=== PATIENT | female | born 1960 | race Caucasian/White ===

== ENCOUNTER 2017-09-10 17:41 | Emergency (ER) | payer BC ==
--- NOTE | 2017-09-10 17:53 | PDOC ---
Rapid Medical Evaluation Chief Complaint: Cold Symptoms Time Seen by Provider: 09/10/17 17:51 Medical Evaluation: Allergies Allergy/AdvReac Type Severity Reaction Status Date / Time No Known Drug Allergies Allergy Verified 09/10/17 17:51 shrimp Allergy Mild Hives Uncoded 09/10/17 17:51 09/10/17 17:51 The patient presents with a chief complaint of: [Chills, bodyaches, headache, since Sunday.] I have performed a brief in-person evaluation of this patient. Pertinent physical exam findings: [Lungs clear, nasal congestion, HR 113, Temp 99.9] I have ordered the following: [Rapid influenza.] The patient will proceed to the ED for further evaluation. 09/10/17 17:53 Discharge Disposition - Diagnosis Fever - Referrals - Patient Instructions - Post Discharge Activity
[2017-09-10 17:54] VITALS: BP 165/94; PULSE 115; TEMP 99.9; BMI 32.0
--- NOTE | 2017-09-10 18:28 | PDOC ---
History of Present Illness - General Chief Complaint: Cold Symptoms Stated Complaint: COLD SYMPTOMS Time Seen by Provider: 09/10/17 17:51 History Source: Patient Exam Limitations: No Limitations - History of Present Illness Initial Comments: 09/10/17 18:24 56 yr female no pmhx c/o chills body aches fever nasal congestion for 48hrs. no abd pain or vomiting. pt asking to be tested for flu. Severity: reports: mild Past History - Past Medical History Allergies/Adverse Reactions: Allergies Allergy/AdvReac Type Severity Reaction Status Date / Time No Known Drug Allergies Allergy Verified 09/10/17 17:51 shrimp Allergy Mild Hives Uncoded 09/10/17 17:51 Home Medications: Ambulatory Orders NK [No Known Home Medication] 09/10/17 COPD: No - Surgical History Abdominal Surgery: Yes Cholecystectomy: Yes - Immunization History Immunization Up to Date: Yes - Suicide/Smoking/Psychosocial Hx Smoking History: Never smoked Have you smoked in the past 12 months: No Number of Cigarettes Smoked Daily: 0 Information on smoking cessation initiated: No Hx Alcohol Use: No Drug/Substance Use Hx: No Substance Use Type: None Respiratory Specific PMHX - Complaint Specific PMHX Angina: No Bronchitis: No Pneumonia: No Pulmonary Embolus: No TB (Tuberculosis): No Review of Systems - Review of Systems Able to Perform ROS?: Yes Is the patient limited Polish proficient: No Constitutional: Yes: Symptoms Reported, Fever HEENTM: Yes: Nose Congestion Respiratory: Yes: Cough Musculoskeletal: No: Symptoms Reported *Physical Exam - Vital Signs Last Vital Signs Temp Pulse Resp BP Pulse Ox 99.9 F H 115 H 18 165/94 100 09/10/17 17:51 09/10/17 17:51 09/10/17 17:51 09/10/17 17:51 09/10/17 17:51 - Physical Exam General Appearance: Yes: Nourished, Appropriately Dressed HEENT: positive: EOMI, SACHA, Normal ENT Inspection, TMs Normal, Pharynx Normal, Nasal Congestion Neck: positive: Supple Respiratory/Chest: positive: Lungs Clear, Normal Breath Sounds. negative: Chest Tender Cardiovascular: positive: Regular Rhythm, Regular Rate Gastrointestinal/Abdominal: positive: Normal Bowel Sounds, Soft Extremity: positive: Normal Capillary Refill, Normal Inspection, Normal Range of Motion Integumentary: positive: Normal Color, Dry, Warm Neurologic: positive: shipping and receiving clerk II-XII NML intact, Fully Oriented, Alert, Normal Mood/ Affect Medical Decision Making - Medical Decision Making 09/10/17 18:27 cc: fever cough nasal congestion for 3 days asking to be tested for flu will swab for flu *DC/Admit/Observation/Transfer Diagnosis at time of Disposition: Sinus congestion - Discharge Dispostion Disposition: HOME Condition at time of disposition: Good - Referrals Referrals: Jak Bedoya MD [Primary Care Provider] - Omar Cintron MD [Staff Physician] - - Patient Instructions Additional Instructions: use afrin nasal spray for congestion (over the counter) continue to take motrin and tylenol for body aches and fever as directed increase vitamin c and zinc in your diet to boost immune system good handwashing follow with the ENT doctors if any worsening symptoms - Post Discharge Activity
== END 2017-09-10 19:15 | disposition home or self-care (01) ==
LOC: JERFT 17:41
DX: J34.89 Other specified disorders of nose and nasal sinuses (principal)
CPT/HCPCS: 87804; 99281-25